=== PATIENT | female | born 1930 | race Caucasian/White ===

== ENCOUNTER 2017-01-02 12:01 | Emergency (ER) | payer MEDICARE, OTHER ==
[~2017-01-02] VITALS: Ht 170.2 cm; Wt 75.7 kg
[~2017-01-02 12:01] MED LIST: ASPI81 PO; ATOR10 PO; CALCTAB32 PO; CENTTAB9 PO; COUM3TAB PO; POLY119S PO; TOPR50TA PO; WARF4 PO
[2017-01-02 12:04] VITALS: BP 132/69; PULSE 77; RESP 16; TEMP 97.8; O2SAT 95
[2017-01-02] MEDS ORDERED: METO100T PO (12:25)
[2017-01-02] MEDS ORDERED: ASPI81CH37 PO (12:25)
[2017-01-02] MEDS ORDERED: CALC1TAB87 PO (12:25)
[2017-01-02] MEDS ORDERED: LISI-519 PO (12:25)
[2017-01-02] MEDS ORDERED: WARF-20 PO (12:25)
[2017-01-02] MEDS ORDERED: SPIR25TA PO (12:25)
[2017-01-02] MEDS ORDERED: FURO40TA PO (12:25)
[2017-01-02] MEDS ORDERED: META0.522 (12:25)
[2017-01-02] MEDS ORDERED: CENTCHW4 CHEW (12:25)
[2017-01-02] MEDS ORDERED: SOD PHOSPHATE/SOD BIPHOSPHATE (ADULT) ENEMA 133ML RECTAL ONE (12:30)
[2017-01-02] MEDS ORDERED: COLY4000S PO (12:36)
--- NOTE | 2017-01-02 12:36 | PD ---
HPI Chief Complaint: GI Complaint Time Seen by Provider: 12:14 Travel History International Travel<30 days: No Contact w/Intl Traveler<30days: No Traveled to known affect area: No History of Present Illness HPI 86-year-old female complains of constipation. Patient states that she has been constipated for the past several days. Patient denies any headache. Patient denies any chest pain or shortness of breath. Patient denies abdominal pain. Patient denies any dysuria or frequency. Patient denies any fever chills. Patient has been taking [id number] Metamucil without much relief of the constipation. PFSH Past Medical History Arthritis: Yes Asthma: No Autoimmune Disease: No Blood Disorders: No Anxiety: No Depression: No Heart Rhythm Problems: Yes (AFIB SINCE 2007) Cancer: No Cardiovascular Problems: Yes (CHRONIC A FIB) High Cholesterol: No Chemotherapy: No Chest Pain: No Congestive Heart Failure: No COPD: No Cerebrovascular Accident: No Diabetes: No Diminished Hearing: No Endocrine: No Gastrointestinal Disorders: Yes GERD: No Glaucoma: No Genitourinary: No Headaches: No Hiatal Hernia: No Hypertension: Yes Immune Disorder: No Implanted Vascular Access Dvce: Yes Kidney Stones: No Musculoskeletal: Yes (FX LEFT WRIST: CAST ) Neurologic: No Psychiatric: No Reproductive: No Respiratory: No Migraines: No Myocardial Infarction: No Radiation Therapy: No Renal Failure: No Seizures: No Sickle Cell Disease: No Sleep Apnea: No Thyroid Disease: No Ulcer: No PNEUMOCCOCAL Vaccine (Year): 2 Menopausal: Yes Past Surgical History Abdominal Surgery: Yes (LAP MAINOR) AICD: No Appendectomy: Yes Arteriovenous Shunt: No Cardiac Surgery: Yes (SINGLE CHAMBER PM IMPLANT - ST KRUNAL 2007) Cholecystectomy: Yes Ear Surgery: No Endocrine Surgery: No Eye Surgery: Yes (BILATERAL CATARRACT REMOVAL W/ BILATERAL LENS IMPLANTS 2009) Genitourinary Surgery: No Gynecologic Surgery: No Insulin Pump: No Joint Replacement: No Oral Surgery: No Pacemaker: Yes (SINGLE CHAMBER ST KRUNAL) Thoracic Surgery: No Other Surgery: Yes (LAP CHOLECYSTECOMY; PERMANENT PACER INSERTION) Social History Alcohol Use: No Tobacco Use: No Substance Use: No Allergies-Medications (Allergen,Severity, Reaction): Coded Allergies: No Known Allergies (Verified , 01/02/17) Reported Meds & Prescriptions Reported Meds & Active Scripts Active Golytely 236 gm (Polyethylene Glycol/Electrolytes) 4,000 Ml Soln 4,000 Ml PO ONCE Reported Metamucil (Psyllium Husk) 0.52 Gm Capsule Calcium 600 with Vitamin D (Calcium Carbonate-Cholecalciferol) 600-400 mg-Unit Tab 1 Tab PO BID Centrum (Multiple Vitamins W/ Minerals) 1 Chew 1 Tab CHEW DAILY Aspirin Low Dose (Aspirin) 81 Mg Chew 81 Mg PO DAILY Warfarin 4 Mg Tab 4 Mg PO DAILY Spironolactone 25 Mg Tab 25 Mg PO DAILY Metoprolol Tartrate 100 Mg Tab 100 Mg PO DAILY Furosemide 40 Mg Tab 40 Mg PO DAILY Lisinopril 5 Mg Tab 5 Mg PO DAILY Review of Systems General / Constitutional: No: Fever Eyes: No: Visual changes HENT: No: Headaches Cardiovascular: No: Chest Pain or Discomfort Respiratory: No: Shortness of Breath Gastrointestinal: Positive: Constipation, No: Abdominal Pain Genitourinary: No: Dysuria Musculoskeletal: No: Pain Skin: No Rash Neurologic: No: Weakness Psychiatric: No: Depression Endocrine: No: Polydipsia Hematologic/Lymphatic: No: Easy Bruising Physical Exam Narrative GENERAL: Well-nourished, well-developed patient. SKIN: Focused skin assessment warm/dry. HEAD: Normocephalic. EYES: No scleral icterus. No injection or drainage. NECK: Supple, trachea midline. No JVD or lymphadenopathy. CARDIOVASCULAR: Regular rate and rhythm without murmurs, gallops, or rubs. RESPIRATORY: Breath sounds equal bilaterally. No accessory muscle use. GASTROINTESTINAL: Abdomen soft, non-tender, nondistended. MUSCULOSKELETAL: No cyanosis, or edema. BACK: Nontender without obvious deformity. No CVA tenderness. Rectal exam: Patient has a large amount of stool per rectum. Data Data Last Documented VS Vital Signs Date Time Temp Pulse Resp B/P Pulse Ox O2 Delivery O2 Flow Rate FiO2 01/02/17 12:04 97.8 77 16 132/69 95 Orders Fleets Enema (Adult) (Fleets Enema (Adul (01/02/17 12:30) MDM Medical Decision Making Medical Screen Exam Complete: Yes Emergency Medical Condition: Yes Differential Diagnosis Differential diagnosis including constipation, so infection, bowel obstruction. Narrative Course 86-year-old female with constipation. Procedures Procedure Narrative Stool disimpaction was done in the ED along with Fleet enema. Patient feeling better. Patient wants to go home. Diagnosis Primary Impression: Constipation Qualified Code: K59.01 - Slow transit constipation Patient Instructions: General Instructions Additional Instructions: [id number] stool softener as needed. GoLYTELY as needed. Follow-up with personal physician and GI specialist. Return if worse. Med/Other Pt SpecificInfo: Prescription(s) given Scripts Peg-Electrolytes (Golytely 236 gm)4,000 Ml Soln4,000 Ml PO ONCE #1 CONTAINER Ref 0 Prov:Ishmael Monsalve MD 01/02/17 Disposition: 01 DISCHARGE HOME Condition: Stable Ishmael Monsalve MD Jan 02, 2017 12:36
== END 2017-01-02 13:15 | disposition home or self-care (01) ==
LOC: PHED 12:01
DX: K59.01 Slow transit constipation (principal); I10 Essential (primary) hypertension; I48.2 Chronic atrial fibrillation; Z90.49 Acquired absence of other specified parts of digestive tract
CPT/HCPCS: 99284

== ENCOUNTER 2017-08-18 16:45 | Emergency (ER) | payer MEDICARE, OTHER ==
[~2017-08-18] VITALS: Ht 167.6 cm; Wt 73.6 kg
[~2017-08-18 16:45] MED LIST changes: -ASPI81 PO; +ASPI81CH6 PO; -ATOR10 PO; +CALC1TAB87 PO; -CALCTAB32 PO; +CENTCHW4 CHEW; -CENTTAB9 PO; +COLY4000S PO; -COUM3TAB PO; +FURO40TA PO; +LISI-519 PO; +META0.522; +METO100T PO; -POLY119S PO; +SPIR25TA PO; -TOPR50TA PO; +WARF-20 PO; -WARF4 PO
[2017-08-18 17:19] VITALS: BP 96/49; PULSE 60; RESP 16; TEMP 97.6; O2SAT 98
[2017-08-18 17:26] VITALS: BP 146/64; PULSE 60; RESP 16
[2017-08-18] MEDS ORDERED: WARF4TAB52 PO (18:55)
[2017-08-18] MEDS ORDERED: WARF-58 PO ×2 (18:55→20:27)
[2017-08-18] MEDS ORDERED: WARF-20 PO ×3 (18:55→20:27)
[2017-08-18] MEDS ORDERED: ACETAMINOPHEN/HYDROcodone 325 MG/7.5 MG TAB PO ONE (20:15)
[2017-08-18 20:31] VITALS: BP 140/78; PULSE 66; RESP 18; O2SAT 98
--- NOTE | 2017-08-18 20:41 | RADRPT ---
EXAM DATE/TIME: 08/18/2017 20:19 [facility] COMPARISON: No previous studies available for comparison. INDICATIONS : Right neck pain for 3 weeks RADIATION DOSE: 26.37 CTDIvol (mGy) MEDICAL HISTORY : Cardiovascular disease. SURGICAL HISTORY : Cholecystectomy. Pacemaker. ENCOUNTER: Initial ACUITY: 3 weeks PAIN SCALE: 4/10 LOCATION: Right neck TECHNIQUE: Volumetric scanning of the cervical spine was performed. Multiplanar reconstructions in the sagittal, coronal and oblique axial planes were performed. Using automated exposure control and adjustment o f the mA and/or kV according to patient size, radiation dose was kept as low as reasonably achievable to obtain optimal diagnostic quality images. DICOM format image data is available electronically f or review and comparison. FINDINGS: There is decreased bone density. Odontoid process is intact. There are severe degenerative changes at the C1-2 articulation on the right at C2-3 facet joints bilaterally. There is ankylosis of the bilat eral C3-4 and C4-5 articular facet joints. There is smooth bridging osteophyte formation throughout t he cervical spine with intervertebral disc calcification noted. There is no prevertebral soft tissue swelling or compression deformity. Multilevel osteophyte formation is seen. There is a nondisplaced f racture lucency through the left anterior arch of C1 on image 15, this is age-indeterminate.. Emphyse matous changes are identified. CONCLUSION: Moderate to severe degenerative changes are noted as above. Age indeterminate nondisplaced lucency th rough the anterior arch of C1. Emphysema. Manny Griffin MD on August 18, 2017 at 20:36 Board Certified Radiologist. This report was verified electronically.
[2017-08-18 21:04] VITALS: RESP 15
[2017-08-18] MEDS ORDERED: HYDR-3580 PO (21:44)
[2017-08-18] MEDS ORDERED: ROBA500T PO (21:44)
--- NOTE | 2017-08-18 21:45 | PD ---
HPI Chief Complaint: Musculoskeletal Complaint Time Seen by Provider: 19:55 Travel History International Travel<30 days: No Contact w/Intl Traveler<30days: No Traveled to known affect area: No History of Present Illness HPI 88-year-old female complains of neck and head pain for 3 weeks. Initially she saw a chiropractor who was concerned about carotid artery disease and advised ultrasound. That was performed and upon review of it reveals mild to moderate carotid artery stenosis bilaterally with no critical stenosis. Pain is primarily involving the right neck and head. Patient reports occasional severe episodes of pain lasting about 90 seconds per last night therefore more frequent. She denies any injury. She denies loss of consciousness. No chest pain nausea vomiting fever chills or shortness of breath. PFSH Past Medical History Hx Anticoagulant Therapy: Yes (coumadin) Arthritis: Yes Asthma: No Autoimmune Disease: No Blood Disorders: No Anxiety: No Depression: No Heart Rhythm Problems: Yes (AFIB SINCE 2007) Cancer: No Cardiovascular Problems: Yes (htn on meds, a-fib) High Cholesterol: No Chemotherapy: No Chest Pain: No Congestive Heart Failure: No COPD: No Cerebrovascular Accident: No Diabetes: No Diminished Hearing: No Endocrine: No Gastrointestinal Disorders: Yes GERD: No Glaucoma: No Genitourinary: No Headaches: No Hiatal Hernia: No Heparin Induced Thrombocytopen: No Hypertension: Yes Immune Disorder: No Implanted Vascular Access Dvce: Yes Kidney Stones: No Musculoskeletal: Yes (FX LEFT WRIST: CAST ) Neurologic: No Psychiatric: No Reproductive: No Respiratory: No Migraines: No Myocardial Infarction: No Radiation Therapy: No Renal Failure: No Seizures: No Sickle Cell Disease: No Sleep Apnea: No Thyroid Disease: No Ulcer: No Tetanus Vaccination: Unknown PNEUMOCCOCAL Vaccine (Year): 2 ?: Not Menopausal: Yes Past Surgical History Abdominal Surgery: Yes (LAP MAINOR) AICD: No Appendectomy: Yes Arteriovenous Shunt: No Cardiac Surgery: Yes (SINGLE CHAMBER PM IMPLANT - ST KRUNAL 2007) Cholecystectomy: Yes Ear Surgery: No Endocrine Surgery: No Eye Surgery: Yes (BILATERAL CATARRACT REMOVAL W/ BILATERAL LENS IMPLANTS 2009) Genitourinary Surgery: No Gynecologic Surgery: No Insulin Pump: No Joint Replacement: No Neurologic Surgery: No Oral Surgery: No Pacemaker: Yes (SINGLE CHAMBER ST KRUNAL) Thoracic Surgery: No Other Surgery: Yes (LAP CHOLECYSTECOMY; PERMANENT PACER INSERTION) Social History Alcohol Use: No Tobacco Use: No Substance Use: No Allergies-Medications (Allergen,Severity, Reaction): Coded Allergies: No Known Allergies (Verified Adverse Reaction, Unknown, 08/18/17) Reported Meds & Prescriptions Reported Meds & Active Scripts Active Robaxin (Methocarbamol) 500 Mg Tab 500 Mg PO TID 14 Days Hydrocodone-Acetaminophen 7.5 Mg-325 Mg Tab 1 Tab PO Q6H PRN Reported Warfarin 3 Mg Tab 3.5 Mg PO EVERY OTHER DAY Warfarin 4 Mg Tab 4 Mg PO EVERY OTHER DAY Metamucil (Psyllium Husk) 0.52 Gm Capsule Calcium 600 with Vitamin D (Calcium Carbonate-Cholecalciferol) 600-400 mg-Unit Tab 1 Tab PO BID Centrum (Multiple Vitamins W/ Minerals) 1 Chew 1 Tab CHEW DAILY Aspirin Low Dose (Aspirin) 81 Mg Chew 81 Mg PO DAILY Spironolactone 25 Mg Tab 25 Mg PO DAILY Metoprolol Tartrate 100 Mg Tab 100 Mg PO DAILY Furosemide 40 Mg Tab 40 Mg PO DAILY Review of Systems Except as stated in HPI: all other systems reviewed are Neg General / Constitutional: No: Fever Physical Exam Narrative GENERAL: Well-nourished well-developed 79-year-old female no acute distress Vital Signs Date Time Temp Pulse Resp B/P (MAP) Pulse Ox O2 Delivery O2 Flow Rate FiO2 08/18/17 21:55 65 15 136/77 (96) 98 08/18/17 21:04 15 08/18/17 20:31 66 18 140/78 (98) 98 Room Air 08/18/17 17:26 60 16 146/64 (91) 08/18/17 17:19 97.6 60 16 96/49 (65) 98 SKIN: Warm and dry. HEAD: Atraumatic. Normocephalic. EYES: Pupils equal and round. No scleral icterus. No injection or drainage. ENT: No nasal bleeding or discharge. Mucous membranes pink and moist. NECK: Trachea midline. No JVD. Tenderness palpation of the paracervical musculature in the neck. CARDIOVASCULAR: Regular rate and rhythm. RESPIRATORY: No accessory muscle use. Clear to auscultation. Breath sounds equal bilaterally. GASTROINTESTINAL: Abdomen soft, non-tender, nondistended. Hepatic and splenic margins not palpable. MUSCULOSKELETAL: Extremities without clubbing, cyanosis, or edema. No obvious deformities. NEUROLOGICAL: Awake and alert. No obvious cranial nerve deficits. Motor grossly within normal limits. Five out of 5 muscle strength in the arms and legs. Normal speech. PSYCHIATRIC: Appropriate mood and affect; insight and judgment normal. Data Data Last Documented VS Vital Signs Date Time Temp Pulse Resp B/P (MAP) Pulse Ox O2 Delivery O2 Flow Rate FiO2 08/18/17 21:55 65 15 136/77 (96) 98 08/18/17 20:31 Room Air 08/18/17 17:19 97.6 Orders Orders Acetamin-Hydrocod 325-7.5 Mg ([place] 7.5 (08/18/17 20:15) Ct Cerv Spine W/O Contrast (08/18/17 ) Oxycodone (Roxicodone) (08/18/17 20:15) Ed Discharge Order (08/18/17 21:43) Oxycodone (Roxicodone) (08/18/17 22:00) Ondansetron Odt (Zofran Odt) (08/18/17 22:00) [facility] Medical Decision Making Medical Screen Exam Complete: Yes Emergency Medical Condition: Yes Medical Record Reviewed: Yes Differential Diagnosis djd, spinal stenosis, DJD Narrative Course Last Impressions Cervical Spine CT 08/18/17 0000 Signed Impressions: Service Date/Time: Friday, August 18, 2017 20:19 - CONCLUSION: Moderate to severe degenerative changes are noted as above. Age indeterminate nondisplaced lucency through the anterior arch of C1. Emphysema. Manny Griffin MD Pain control. Follow-up with primary care provider. Neurosurgery discus with Dr Valente appreciated. Diagnosis Primary Impression: Cervicalgia Additional Impressions: Cervicalgia of [id number] region Torticollis Osteoarthritis cervical spine Qualified Codes: M47.812 - Spondylosis without myelopathy or radiculopathy, cervical region Referrals: Primary Care Physician 2 days Med/Other Pt SpecificInfo: Prescription(s) given Scripts Methocarbamol (Robaxin) 500 Mg Tab 500 MG PO TID for Muscle Spasm for 14 Days, TAB 0 Refills Prov: Dany Allen MD 08/18/17 Hydrocodone-Acetaminophen (Hydrocodone-Acetaminophen) 7.5 Mg-325 Mg Tab 1 TAB PO Q6H Y for PAIN SCALE 6 TO 10, #15 TAB 0 Refills Prov: Dany Allen MD 08/18/17 Disposition: 01 DISCHARGE HOME Condition: Stable Dany Allen MD Aug 18, 2017 21:45
[2017-08-18 21:55] VITALS: BP 136/77
[2017-08-18] MEDS ORDERED: ONDANSETRON ODT 4 MG TAB PO ONE (22:00)
== END 2017-08-18 22:37 | disposition home or self-care (01) ==
LOC: PHED 16:45
DX: M54.2 Cervicalgia (principal); M43.6 Torticollis; M47.9 Spondylosis, unspecified; J43.9 Emphysema, unspecified; R51 Headache; M19.90 Unspecified osteoarthritis, unspecified site; I48.91 Unspecified atrial fibrillation; I10 Essential (primary) hypertension; Z79.82 Long term (current) use of aspirin
CPT/HCPCS: 72125; 99283